=== PATIENT | male | born 1955 | race Hispanic/Latino ===

== ENCOUNTER 2021-06-24 12:23 | Outpatient (CLI) | payer MEDICARE | END 2021-06-24 12:24 | disposition home or self-care (01) | LOC: CSHRAD 12:23 | PROVIDERS: ATTEND Student in an Organized Health Care Education/Training Program | DX: M79.671 Pain in right foot (principal); G89.29 Other chronic pain; M77.31 Calcaneal spur, right foot ==

== ENCOUNTER 2021-09-09 16:44 | Outpatient (CLI) | payer MEDICARE, OTHER | END 2021-09-09 16:45 | disposition home or self-care (01) | LOC: CSHRAD 16:44 | PROVIDERS: ATTEND Student in an Organized Health Care Education/Training Program | DX: R05.9 Cough, unspecified (principal) | CPT/HCPCS: 71046 ==